=== PATIENT | female | born 1965 | race Caucasian/White ===

== ENCOUNTER → 2021-07-28 | Outpatient (CLI) | payer OTHER | END | disposition home or self-care (01) | LOC: LAB SHORT 12:50 → LAB 12:50 | DX: N39.0 Urinary tract infection, site not specified (principal) | CPT/HCPCS: 87077; 87086; 87186 ==

== ENCOUNTER → 2021-10-14 | Outpatient (CLI) | payer OTHER | END | disposition home or self-care (01) | LOC: LAB SHORT 15:31 → LAB 15:31 | DX: R35.0 Frequency of micturition (principal) | CPT/HCPCS: 87086 ==

== ENCOUNTER → 2021-12-19 | Outpatient (CLI) | payer OTHER ==
[2021-12-19 15:16] LABS: Candida species (DNA Probe) Negative (NEGATIVE); G. vaginalis (DNA Probe) Negative (NEGATIVE); T. vaginalis (DNA Probe) Negative (NEGATIVE)
== END | disposition home or self-care (01) ==
LOC: LAB SHORT 11:37 → LAB 11:37
PROVIDERS: Family Medicine
DX: N89.8 Other specified noninflammatory disorders of vagina (principal)
CPT/HCPCS: 87480; 87510; 87660

== ENCOUNTER 2024-02-29 19:31 | Emergency (ER) | payer BC ==
[~2024-02-29] VITALS: Ht 160 cm; Wt 79.4 kg
[2024-02-29 19:56] VITALS: BP 126/78
== END 2024-02-29 21:40 | disposition home or self-care (01) ==
LOC: ER 19:31
DX: S01.111A Laceration without foreign body of right eyelid and periocular area, initial encounter (principal); W22.8XXA Striking against or struck by other objects, initial encounter; Z88.0 Allergy status to penicillin; Z88.8 Allergy status to other drugs, medicaments and biological substances
CPT/HCPCS: 12011; 99282-25

== ENCOUNTER → 2024-05-15 | Outpatient (CLI) | payer OTHER | LOC: LAB SHORT 17:45 → LAB 17:45 | DX: R30.0 Dysuria (principal) | CPT/HCPCS: 87077; 87086; 87186 ==

== ENCOUNTER → 2025-04-22 | Outpatient (CLI) | payer OTHER | LOC: LAB SHORT 14:14 → LAB 14:14 | DX: D11.0 Benign neoplasm of parotid gland (principal); E04.1 Nontoxic single thyroid nodule | CPT/HCPCS: 88173 ==

== ENCOUNTER → 2025-07-27 | Outpatient (CLI) | payer OTHER | LOC: LAB 11:08 → LAB SHORT 11:08 | DX: R30.0 Dysuria (principal) | CPT/HCPCS: 87086 ==